=== PATIENT | male | born 1970 | race American Indian/Alaskan Native ===

== ENCOUNTER 2020-09-30 20:09 | Emergency (ER) | payer BC ==
[2020-09-30] MEDS ORDERED: KETOROLAC 30 MG/1 ML INJ IV ONE (20:24)
[2020-09-30] MEDS ORDERED: ACETAMINOPHEN 500 MG TAB PO ONE (20:55)
[2020-09-30] MEDS ORDERED: SODIUM CHLORIDE 0.9% 1000 ML 1,000 ML IV ONE (20:55)
[2020-09-30 21:20] LABS: Hemoglobin 14.3 gm/dl (11.8-15.2); Mean Corpuscular HGB Conc 33 % (32-34); Mean Corpuscular Volume 86 fl (84-94); Platelet Count 177 K/mm3 (140-440); Red Cell Distribution Width 14.4 % (13.2-15.2)
[2020-09-30 21:32] LABS: Alanine Aminotransferase 18 units/L (7-56); Albumin 4.1 g/dL (3.9-5); BUN/Creatinine Ratio 8; Blood Urea Nitrogen 10 mg/dL (9-20); Calcium 9.3 mg/dL (8.4-10.2); Hemolysis Index 21
[2020-09-30 22:03] LABS: Total Cells Counted 100
[2020-09-30 22:05] LABS: Platelet Estimate Consistent w Auto; RBC Morphology Normal; Toxic Granulation 1+; Toxic Vacuolation Few
[2020-09-30] MEDS ORDERED: cefTRIAXone/NS 2 GM/100 ML 2 GM/100 ML BAG IV ONE (22:44)
--- NOTE | 2020-09-30 22:48 | Emergency Department Report ---
ED Male HPI - General Chief complaint: Urogenital-Male Stated complaint: DIFFICULTY URINATION/PAINFUL Time Seen by Provider: 09/30/20 22:39 Source: patient Mode of arrival: Ambulatory Limitations: No Limitations - History of Present Illness Initial comments: CC: difficulty urinating HPI: THis is a 50 yo male with hx of HTN, DM, sciatica who presents with difficulty urinating, dysuria and frequent urination. For several months patient has had frequent urination. On yesterday around 8:30 PM he noticed that he had difficulty urinating. Since that time he has had frequent urination every hour. He has burning with urination. He denies fever chills. However he was informed triage that he had temperature 102 Fahrenheit. He has not been evaluated by urologist. He works for [employer] at the [employer]. He denies chest pain shortness of breath or loss of taste or smell. He has not been vaccinated for COVID-19. He does not smoke tobacco. Rarely drinks alcohol. He does not take any medication. MD Complaint: dysuria, other (Difficulty difficulty with urination, frequent urination) -: Gradual (Yesterday evening) Severity: moderate Severity scale (0 -10): 7 Quality: burning Improves with: none Worsens with: urination urinary retention, fever - Related Data Previous Rx's Medication Instructions Recorded Last Taken Type Tamsulosin [Flomax] 0.4 mg PO QDAY 30 Days #30 cap 10/01/20 Unknown Rx cephALEXin [Keflex] 500 mg PO Q6HR 7 Days #28 capsule 10/01/20 Unknown Rx Allergies Allergy/AdvReac Type Severity Reaction Status Date / Time No Known Allergies Allergy Verified 09/30/20 22:58 ED Review of Systems ROS: Stated complaint: DIFFICULTY URINATION/PAINFUL Other details as noted in HPI Comment: All other systems reviewed and negative Constitutional: denies: chills, malaise Respiratory: denies: cough, shortness of breath Gastrointestinal: denies: abdominal pain, nausea, vomiting Genitourinary: urgency, dysuria, frequency. denies: hematuria, testicular pain, testicular mass Musculoskeletal: denies: back pain ED Past Medical Hx - Past Medical History Previous Medical History?: Yes Hx Hypertension: Yes Hx Diabetes: Yes Additional medical history: Sciatica - Surgical History Past Surgical History?: No - Family History Family history: diabetes, hypertension - Social History Smoking Status: Never Smoker Substance Use Type: Alcohol - Medications Home Medications: Home Medications Medication Instructions Recorded Confirmed Last Taken Type Tamsulosin [Flomax] 0.4 mg PO QDAY 30 Days #30 cap 10/01/20 Unknown Rx cephALEXin [Keflex] 500 mg PO Q6HR 7 Days #28 capsule 10/01/20 Unknown Rx ED Physical Exam - General Limitations: No Limitations General appearance: alert, in no apparent distress, other (Appears well appears nontoxic appears comfortable ) - Head Head exam: Present: atraumatic, normocephalic - Eye Eye exam: Present: normal appearance - ENT ENT exam: Present: mucous membranes moist - Neck Neck exam: Present: normal inspection, full ROM - Respiratory Respiratory exam: Present: normal lung sounds bilaterally. Absent: respiratory distress, wheezes, rales, rhonchi - Cardiovascular Cardiovascular Exam: Present: normal rhythm, tachycardia, normal heart sounds. Absent: systolic murmur, diastolic murmur, rubs, gallop - GI/Abdominal GI/Abdominal exam: Present: soft, normal bowel sounds. Absent: distended, tenderness, guarding, rebound - Rectal Rectal exam: Present: deferred - Extremities Exam Extremities exam: Present: normal inspection - Neurological Exam Neurological exam: Present: alert, oriented X3 - Psychiatric Psychiatric exam: Present: normal affect, normal mood - Skin Skin exam: Present: warm, dry, intact, normal color. Absent: rash ED Course Vital Signs 09/30/20 09/30/20 20:21 23:29 Temperature 102.7 F H Pulse Rate 126 H 110 H Respiratory 20 17 Rate Blood Pressure 120/83 Blood Pressure 126/66 [Right] O2 Sat by Pulse 96 98 Oximetry ED Medical Decision Making - Lab Data Result diagrams: 09/30/20 21:05 09/30/20 21:05 Laboratory Results - last 24 hr 09/30/20 09/30/20 09/30/20 21:05 21:05 22:38 WBC 20.8 H RBC 5.10 H Hgb 14.3 Hct 44.0 MCV 86 MCH 28 MCHC 33 RDW 14.4 Plt Count 177 Add Manual Diff Complete Total Counted 100 Seg Neuts % (Manual) 94.0 H Lymphocytes % (Manual) 3.0 L Monocytes % (Manual) 3.0 Nucleated RBC % Not Reportable Seg Neutrophils # Man 19.6 H Band Neutrophils # 0.0 Lymphocytes # (Manual) 0.6 L Abs React Lymphs (Man) 0.0 Monocytes # (Manual) 0.6 Eosinophils # (Manual) 0.0 Basophils # (Manual) 0.0 Metamyelocytes # 0.0 Myelocytes # 0.0 Promyelocytes # 0.0 Blast Cells # 0.0 WBC Morphology Not Reportable Hypersegmented Neuts Not Reportable Hyposegmented Neuts Not Reportable Hypogranular Neuts Not Reportable Smudge Cells Not Reportable Toxic Granulation 1+ Toxic Vacuolation Few Dohle Bodies Not Reportable Pelger-Huet Anomaly Not Reportable Mitzi Rods Not Reportable Platelet Estimate Consistent w auto Clumped Platelets Not Reportable Plt Clumps, EDTA Not Reportable Large Platelets Not Reportable Giant Platelets Not Reportable Platelet Satelliting Not Reportable Plt Morphology Comment Not Reportable RBC Morphology Normal Dimorphic RBCs Not Reportable Polychromasia Not Reportable Hypochromasia Not Reportable Poikilocytosis Not Reportable Anisocytosis Not Reportable Microcytosis Not Reportable Macrocytosis Not Reportable Spherocytes Not Reportable Pappenheimer Bodies Not Reportable Sickle Cells Not Reportable Target Cells Not Reportable Tear Drop Cells Not Reportable Ovalocytes Not Reportable Helmet Cells Not Reportable [place] Bodies Not Reportable [place] Rings Not Reportable [place] Cells Not Reportable Bite Cells Not Reportable Crenated Cell Not Reportable Elliptocytes Not Reportable Acanthocytes (Spur) Not Reportable Rouleaux Not Reportable Hemoglobin C Crystals Not Reportable Schistocytes Not Reportable Malaria parasites Not Reportable Santosh Bodies Not Reportable Hem Pathologist Commnt No Sodium 138 Potassium 4.0 Chloride 102.5 Carbon Dioxide 23 Anion Gap 17 BUN 10 Creatinine 1.2 Estimated GFR > 60 BUN/Creatinine Ratio 8 Glucose 132 H Calcium 9.3 Total Bilirubin 0.70 AST 20 ALT 18 Alkaline Phosphatase 104 Total Protein 8.5 H Albumin 4.1 Albumin/Globulin Ratio 0.9 Urine Color Yellow Urine Turbidity Cloudy Urine pH 5.0 Ur Specific Locke 1.014 Urine Protein 30 mg/dl Urine Glucose (UA) Neg Urine Ketones Neg Urine Blood Mod Urine Nitrite Neg Urine Bilirubin Neg Urine Urobilinogen 2.0 Ur Leukocyte Esterase Lg Urine WBC (Auto) > 182.0 H Urine RBC (Auto) 8.0 U Epithel Cells (Auto) 1.0 Urine Bacteria (Auto) 1+ Urine WBC Clumps 2+ Urine Mucus Few - Medical Decision Making Complicated UTI due to BPH: Patient received ceftriaxone emergency department. Prescribed cephalexin and Flomax. Patient did have fever and leukocytosis. I do not suspect bacteremia. Patient appears well nontoxic. Refer to outpatient medicine physician and urologist. Chemistry with normal limits, urinalysis confirmed UTI. He has urinary hesitancy. However he has been able to urinate frequently throughout ED course. Vital Signs - 24 hr 09/30/20 09/30/20 20:21 23:29 Temperature 102.7 F H Pulse Rate 126 H 110 H Respiratory 20 17 Rate Blood Pressure 120/83 Blood Pressure 126/66 [Right] O2 Sat by Pulse 96 98 Oximetry Critical care attestation.: If time is entered above; I have spent that time in minutes in the direct care of this critically ill patient, excluding procedure time. ED Disposition Clinical Impression: Complicated UTI (urinary tract infection), BPH (benign prostatic hyperplasia) Disposition: DC- TO HOME OR SELFCARE Is pt being admited?: No Does the pt Need Aspirin: No Condition: Stable Instructions: Benign Prostatic Hyperplasia, Urinary Tract Infection, Adult, [id number] Prescriptions: Tamsulosin [Flomax] 0.4 mg PO QDAY 30 Days #30 cap cephALEXin [Keflex] 500 mg PO Q6HR 7 Days #28 capsule Referrals: RADHA BALTAZAR MD [Staff Physician] - 3-5 Days DANIELLA ARMENTA MD [Staff Physician] - 3-5 Days Forms: Work/School Release Form(ED)
[2020-09-30 23:09] LABS: Bacteria,Urine 1+ /HPF (Negative); Bilirubin,Urine NEG (Negative); Blood,Urine MOD (Negative); Color,Urine Yellow (Yellow); Mucus,Urine FEW /HPF
[2020-09-30 23:12] LABS: WBC,Urine > 182.0 /HPF (0.0-6.0)
[2020-10-01 00:35] VITALS: BP 119/66
== END 2020-10-01 00:35 | disposition home or self-care (01) ==
LOC: ED 20:09
DX: N39.0 Urinary tract infection, site not specified (principal); N40.0 Benign prostatic hyperplasia without lower urinary tract symptoms; I10 Essential (primary) hypertension; E11.9 Type 2 diabetes mellitus without complications; Z79.899 Other long term (current) drug therapy
CPT/HCPCS: 36415; 80053; 81001; 85007; 85025; 96365; 96375; 99283; J0696; J1885

== ENCOUNTER 2021-12-06 09:07 | Outpatient (CLI) | payer BC | END 2021-12-06 09:08 | disposition home or self-care (01) | LOC: LAB 09:07 | PROVIDERS: ATTEND Internal Medicine | DX: R73.03 Prediabetes (principal) | CPT/HCPCS: 36415; 83036 ==